=== PATIENT | male | born 1970 | race Two or more races ===

== ENCOUNTER 2018-11-07 06:44 | Emergency (ER) | payer OTHER ==
[~2018-11-07] VITALS: Ht 180.3 cm; Wt 145.1 kg
[2018-11-07] MEDS ORDERED: COZAAR25 MG (07:12)
[2018-11-07] MEDS ORDERED: JARDIANCE25 MG (07:13)
[2018-11-07] MEDS ORDERED: METFORMIN HCL500 MG (07:13)
== END 2018-11-07 10:17 | disposition home or self-care (01) ==
LOC: ER 06:44
DX: S93.491A Sprain of other ligament of right ankle, initial encounter (principal); X50.0XXA Overexertion from strenuous movement or load, initial encounter; Y93.89 Activity, other specified; Y92.89 Other specified places as the place of occurrence of the external cause; Y99.8 Other external cause status